=== PATIENT | female | born 1930 | race African-American/Black ===

== ENCOUNTER → 2017-01-29 | Outpatient (CLI) | payer BC ==
[2017-01-29 15:42] LABS: CALCIUM 9.5 mg/dL (8.5-10.1); POTASSIUM 4.5 mmol/L (3.5-5.1)
[2017-01-29 15:43] LABS: CREATININE 1.6 mg/dL (0.6-1.0); GFR 36.8
== END | disposition home or self-care (01) ==
LOC: EDBD 14:43 → LAB 14:43
PROVIDERS: ATTEND Internal Medicine Cardiovascular Disease
DX: I42.8 Other cardiomyopathies (principal)
CPT/HCPCS: 36415; 80048